=== PATIENT | female | born 1995 | race Hispanic/Latino ===

== ENCOUNTER 2020-01-20 18:06 | Inpatient (IN) | payer BC ==
[~2020-01-20] VITALS: Ht 167.6 cm; Wt 78.9 kg
[2020-01-20] MEDS ORDERED: LACTATED RINGERS 1000ML 1,000 ML IV ONE (19:40)
[2020-01-20] MEDS: LACTATED RINGERS 1000ML 1,000 ML IV PRN (20:20)
[2020-01-20 21:41] LABS: APPEARANCE,URINE Clear (CLEAR); BILIRUBIN,URINE Negative (NEGATIVE); COLOR,URINE Yellow (YELLOW); GLUCOSE, URINE (UA) Negative (NEGATIVE); KETONES,URINE Negative (NEGATIVE); LEUKOCYTE ESTERASE ,URINE Small (NEGATIVE); NITRATE,URINE Negative (NEGATIVE); OCCULT BLOOD,URINE Negative (NEGATIVE); PH,URINE 6.5 (5.0-8.0); PROTEIN,URINE Negative (NEGATIVE); UROBILINOGEN,URINE 0.2 mg/dL (0.2-1.0)
[2020-01-20 21:52] LABS: BACTERIA,URINE Rare /HPF (None Seen); RBC,URINE None Seen /HPF (0-1); SQUAMOUS EPITHELIAL CELL,UR 0-2 /HPF (0-2); WBC,URINE 0-1 /HPF (0-1)
[2020-01-20] MEDS ORDERED: ROPIVACAINE 0.2% 100ML VIAL 100 ML EP SCH (23:15)
[2020-01-20] MEDS ORDERED: MEPERIDINE-PF 50 MG/ML SYG IVP PRN (23:15)
[2020-01-20] MEDS ORDERED: LACTATED RINGERS 500 ML 500 ML IV PRN (23:15)
[2020-01-20] MEDS ORDERED: EPHEDRINE SULFATE 50 MG/ML AMPULE IVP PRN (23:15)
[2020-01-20] MEDS ORDERED: NALOXONE HCL 0.4 MG/1 ML ML IV PRN (23:15)
[2020-01-20] MEDS ORDERED: PROMETHAZINE HCL 25 MG/ML 1ML AMPULE IM PRN (23:15)
[2020-01-20] MEDS ORDERED: LEVO25TA54 PO (23:24)
[2020-01-20] MEDS ORDERED: PREN-196 PO (23:25)
[2020-01-21] MEDS: LACTATED RINGERS 1000ML 1,000 ML IV PRN (03:04)
[2020-01-21] MEDS ORDERED: LACTATED RINGERS 1000ML 1,000 ML IV PRN (08:54)
[2020-01-21] MEDS ORDERED: OXYTOCIN-LR 20 UNITS/1000 ML 1,000 ML IV SCH (09:00)
[2020-01-21 09:49] LABS: HEMATOCRIT 27.8 % (36-48); MEAN CORPUSCULAR HEMOGLOBIN 27.4 pg (27.0-33.0); MEAN CORPUSCULAR VOLUME 85.5 fL (79-99); RED BLOOD CELL COUNT(AUTO) 3.25 MIL/uL (4.00-5.50); RED CELL DISTRIBUTION WIDTH 13.1 % (11.0-15.5); WHITE BLOOD COUNT (AUTO) 9.3 K/uL (4.8-10.8)
[2020-01-21] MEDS ORDERED: CALDOLOR 800MG+NS 250ML 250 ML IV PRN ×2 (10:00→12:45)
[2020-01-21] MEDS ORDERED: CEFAZOLIN SODIUM 1 GM VIAL IVP SCH (10:00)
[2020-01-21] MEDS ORDERED: CEFAZOLIN SODIUM 1 GM VIAL IVP PRN (12:45)
[2020-01-21] MEDS ORDERED: LACTATED RINGERS 1000ML 1,000 ML IV SCH (12:45)
[2020-01-21] MEDS ORDERED: DURAMORPH PF1 MG/ML 10ML AMP IV ONE (13:13)
[2020-01-21] MEDS ORDERED: MEASLES/MUMPS/RUBELLA VACCINE, LIVE 0.5 ML/VIAL SQ SCH (14:00)
[2020-01-21] MEDS ORDERED: OXYTOCIN-LR 20 UNITS/1000 ML 1,000 ML IV PRN (14:00)
[2020-01-21] MEDS ORDERED: LANOLIN 30GM OINTMENT TP PRN (14:00)
[2020-01-21] MEDS ORDERED: PROMETHAZINE HCL 25 MG/ML 1ML AMPULE IM PRN (14:00)
[2020-01-21] MEDS ORDERED: BISACODYL 10 MG SUPP.RECT RC PRN (14:00)
[2020-01-21] MEDS ORDERED: SODIUM CHLORIDE 0.9% 10 ML VIAL IVP PRN (14:00)
[2020-01-21] MEDS ORDERED: IBUPROFEN 800 MG TAB PO SCH (14:00)
[2020-01-21] MEDS ORDERED: ACETAMINOPHEN EXTRA STRENGTH 500 MG TABLET PO PRN (14:00)
[2020-01-21] MEDS ORDERED: HYDROCODONE/ACETAMINOPHEN 5/325 MG TAB PO PRN (14:00)
[2020-01-21] MEDS ORDERED: ACETAMINOPHEN-CODEINE 300/30MG TAB PO PRN (14:00)
[2020-01-21] MEDS ORDERED: MEPERIDINE-PF 75 MG/ML SYG IM PRN (14:00)
[2020-01-21] MEDS ORDERED: DIPHENHYDRAMINE HCL 25 MG CAPSULE PO PRN (14:00)
[2020-01-21] MEDS ORDERED: DIPH,PERTUSS(ACELL),TET VAC/PF 0.5 ML VIAL IM SCH (14:00)
[2020-01-21] MEDS ORDERED: DiphenhydrAMINE HCL 50 MG/ML VIAL IVP PRN (15:15)
[2020-01-21] MEDS ORDERED: KETOROLAC TROMETHAMINE 30MG/ML IV PRN (15:15)
[2020-01-21] MEDS ORDERED: NALOXONE HCL 0.4 MG/1 ML ML IVP PRN ×3 (15:15)
[2020-01-21] MEDS: ONDANSETRON HCL 4 MG/2 ML VIAL IVP PRN ×2 (15:59→19:04)
[2020-01-21] MEDS: LEVOTHYROXINE 25 MCG TABLET PO SCH (16:00)
[2020-01-21 16:09] VITALS: BP 114/67
[2020-01-21 19:52] VITALS: BP 112/82
[2020-01-21] MEDS: DOCUSATE SODIUM 100 MG CAP PO SCH (21:48)
[2020-01-21] MEDS: SIMETHICONE 80 MG TAB.CHEW PO PRN (21:48)
[2020-01-21] MEDS: CALDOLOR 800MG+NS 250ML 250 ML IV SCH (21:49)
[2020-01-21] MEDS: DEXTROSE 5 %-0.45 % NACL 1,000 ML IV PRN (22:40)
[2020-01-21 23:07] VITALS: BP 117/77
--- NOTE | 2020-01-22 01:30 | NUR ---
STATUS KELVIN CARE GIVEN, BENJI OLIVIA, ASSISTED PT UP TO SITTING POSITION, BECAME DIZZY, ASSISTED TO SIDE POSITION, ENCOURAGED TO REST Addendum: 01/22/20 at 0431 by BIANCA JONES LVN Amended: Links added.
[2020-01-22 03:46] VITALS: BP 127/76
[2020-01-22] MEDS: DEXTROSE 5 %-0.45 % NACL 1,000 ML IV PRN (05:20)
[2020-01-22] MEDS: CALDOLOR 800MG+NS 250ML 250 ML IV SCH (05:35)
--- NOTE | 2020-01-22 05:40 | NUR ---
STATUS/ACTIVITY ASSISTED UP TO SIDE OF BED, DANGLED, SLIGHTLY DIZZY, TOLERATED WELL, STOOD AT SIDE OF BED, THEN TO CHAIR, TOLERATED WELL, INFANT, CALL LIGHT WITHIN REACH, SPOUSE AT BEDSIDE Addendum: 01/22/20 at 0603 by BIANCA JONES LVN Amended: Links added.
[2020-01-22] MEDS: LEVOTHYROXINE 25 MCG TABLET PO SCH (06:05)
--- NOTE | 2020-01-22 06:30 | NUR ---
STATUS/ERIC CATHETER BACK TO BED, TOLERATED WELL, F/C REMOVED, INTACT, INSTRUCTED TO CALL NURSE WHEN SHE HAS URGE TO VOID Addendum: 01/22/20 at 0641 by BIANCA JONES LVN Amended: Links added.
[2020-01-22 06:55] LABS: HEMATOCRIT 29.7 % (36-48); MEAN CORPUSCULAR HEMOGLOBIN 27.7 pg (27.0-33.0); MEAN CORPUSCULAR HGB CONC 32.3 g/dL (32.0-36.0); MEAN CORPUSCULAR VOLUME 85.8 fL (79-99); RED BLOOD CELL COUNT(AUTO) 3.46 MIL/uL (4.00-5.50); RED CELL DISTRIBUTION WIDTH 13.1 % (11.0-15.5); WHITE BLOOD COUNT (AUTO) 13.5 K/uL (4.8-10.8)
[2020-01-22 07:20] VITALS: BP 105/70
[2020-01-22] MEDS ORDERED: LIDOCAINE 5% TOPICAL PATCH TP SCH (09:00)
[2020-01-22] MEDS: DOCUSATE SODIUM 100 MG CAP PO SCH (09:03)
[2020-01-22] MEDS: SIMETHICONE 80 MG TAB.CHEW PO PRN (09:03)
[2020-01-22 09:10] LABS: HEPATITIS Bs ANTIGEN SCREEN P Negative (Negative)
[2020-01-22 11:17] VITALS: BP 110/66
[2020-01-22] MEDS ORDERED: DOCU-116 PO (12:42)
[2020-01-22] MEDS ORDERED: IBUP-2077 PO (12:42)
[2020-01-22] MEDS ORDERED: ACET1TAB25 PO (12:43)
--- NOTE | 2020-01-22 13:00 | NUR ---
verbal and written discharge instructions given, informed to call the doctor's office on Friday follow up appointment, prescription given. all questions answered. informed to call the doctor for future concerns, pt voiced understanding to all things discussed. Addendum: 01/22/20 at 1312 by VALENTINA HOLDER RN Amended: Links added.
--- NOTE | 2020-01-22 14:20 | NUR ---
pt is dismissed in stable condition, brought to private car via wheelchair. Addendum: 01/22/20 at 1424 by VALENTINA HOLDER RN Amended: Links added.
== END 2020-01-22 14:20 | disposition home or self-care (01) | DRG 788 ==
LOC: EDH 18:06 → LDH 18:07 → OBSVTOIN 18:07 → WSH 01-21 16:06
PROVIDERS: ADMIT Obstetrics & Gynecology; ATTEND Obstetrics & Gynecology
PROC: 3E0234Z Introduction of Serum, Toxoid and Vaccine into Muscle, Percutaneous Approach (ICD-10-PCS; 2020-01-21)
PROC: 3E0134Z Introduction of Serum, Toxoid and Vaccine into Subcutaneous Tissue, Percutaneous Approach (ICD-10-PCS; 2020-01-21)
PROC: 10D00Z1 Extraction of Products of Conception, Low, Open Approach (ICD-10-PCS; principal; 2020-01-21 13:10)
DX: O34.211 Maternal care for low transverse scar from previous cesarean delivery (principal); O66.41 Failed attempted vaginal birth after previous cesarean delivery; O69.81X0 Labor and delivery complicated by cord around neck, without compression, not applicable or unspecified; O99.02 Anemia complicating childbirth; D64.9 Anemia, unspecified; O62.2 Other uterine inertia; Z37.0 Single live birth; Z3A.37 37 weeks gestation of pregnancy; Z23 Encounter for immunization
CPT/HCPCS: 36415; 59510; 81001; 85027; 86592; 86850; 86870; 86880; 86900; 86901; 86905; 87340; 96360; 96361; A4344; G0378; J0690; J1741; J2274; J2405; J2550; J2590; J7120

== ENCOUNTER 2020-07-14 06:04 | Day surgery (SDC) | payer BC ==
[2020-07-12 08:46] LABS: BASOPHILS % (AUTO) 1.1 % (0.0-5.0); EOSINOPHILS % (AUTO) 7.7 % (0.0-8.0); HEMATOCRIT 41.6 % (36-48); LYMPHOCYTES % (AUTO) 39.7 % (21.0-51.0); MEAN CORPUSCULAR HEMOGLOBIN 27.3 pg (27.0-33.0); MEAN CORPUSCULAR VOLUME 85.2 fL (79-99); MONOCYTES % (AUTO) 6.2 % (3.0-13.0); PLATELET COUNT (AUTO) 253 K/uL (130-400); RED BLOOD CELL COUNT(AUTO) 4.88 MIL/uL (4.00-5.50); RED CELL DISTRIBUTION WIDTH 14.6 % (11.0-15.5); WHITE BLOOD COUNT (AUTO) 7.1 K/uL (4.8-10.8)
[2020-07-12] MEDS: CALDOLOR 800MG+NS 250ML 250 ML IV SCH (09:45)
[2020-07-12] MEDS: CEFAZOLIN SODIUM 1 GM VIAL IVP SCH (09:45)
[2020-07-13 09:39] VITALS: BP 104/79
[2020-07-14] VITALS (16 sets, daily range): BP systolic 92–128; BP diastolic 56–84
[~2020-07-14] VITALS: Ht 167.6 cm; Wt 63.5 kg
[~2020-07-14 06:04] MED LIST: LEVO88TA7 PO
[2020-07-14] MEDS ORDERED: LIDOCAINE PF 2% 5ML ABBOJECT ONE (06:59)
[2020-07-14] MEDS ORDERED: DEXAMETHASONE SOD PHOSPHATE 10MG/ML 1ML VIAL ONE (06:59)
[2020-07-14] MEDS ORDERED: STRONG IODINE SOLN 14ML BOTTLE ONE (06:59)
[2020-07-14] MEDS ORDERED: SUCCINYLCHOLINE CHLORIDE 20 MG/ML 10 ML VIAL ONE (06:59)
[2020-07-14] MEDS ORDERED: ONDANSETRON HCL 4 MG/2 ML VIAL ONE (06:59)
[2020-07-14] MEDS ORDERED: MIDAZOLAM HCL 1 MG/ML 2ML VIAL ONE (06:59)
[2020-07-14] MEDS ORDERED: PROPOFOL 10 MG/ML 20ML VIAL IV ONE (07:00)
[2020-07-14] MEDS ORDERED: GLYCOPYRROLATE 1 MG/5 ML SYRINGE ONE (07:00)
[2020-07-14] MEDS ORDERED: ROCURONIUM 10MG/1ML SYR 10 MG/ML ML ONE (07:00)
[2020-07-14] MEDS ORDERED: NEOSTIGMINE 5MG/5ML SYR IV ONE (07:00)
[2020-07-14] MEDS ORDERED: FENTANYL CITRATE PF 50 MCG/1 ML 2ML VIAL ONE ×2 (07:01→07:43)
[2020-07-14] MEDS: CEFAZOLIN SODIUM 1 GM VIAL IVP SCH (07:48)
[2020-07-14] MEDS: CALDOLOR 800MG+NS 250ML 250 ML IV SCH (07:55)
[2020-07-14] MEDS ORDERED: PHENYLEPHRINE HCL 10 MG/ML 1ML VIAL IV ONE (08:00)
[2020-07-14] MEDS ORDERED: MEPERIDINE-PF 25 MG/ML SYG ONE (08:37)
[2020-07-14] MEDS: LACTATED RINGERS 1000ML 1,000 ML IV ONE ×2 (10:21→10:22)
== END 2020-07-14 10:26 | disposition home or self-care (01) ==
LOC: DAH 06:04
PROVIDERS: ATTEND Obstetrics & Gynecology
DX: N87.9 Dysplasia of cervix uteri, unspecified (principal); Z20.828 Contact with and (suspected) exposure to other viral communicable diseases
CPT/HCPCS: 36415; 57520; 84703; 85025; 86850; 86870; 86900; 86901; A4216; A4221; A4222; A4223 ×3; A4351; A4663; A6260; C9803; J0330; J0690; J1100; J1741; J2001; J2175; J2250; J2370; J2405; J2704; J2710; J3010 ×2; J3490; J7030; J7120; U0003